=== PATIENT | male | born 1980 | race Two or more races ===

== ENCOUNTER 2018-10-24 20:03 | Emergency (ER) | payer MEDICAID ==
[~2018-10-24] VITALS: Ht 180.3 cm; Wt 85.7 kg
[2018-10-24 20:27] VITALS: BP 109/79
== END 2018-10-24 23:40 ==
LOC: ER 20:06
DX: S05.11XA Contusion of eyeball and orbital tissues, right eye, initial encounter (principal); R07.81 Pleurodynia; J45.909 Unspecified asthma, uncomplicated; F12.10 Cannabis abuse, uncomplicated; F15.10 Other stimulant abuse, uncomplicated; Z88.1 Allergy status to other antibiotic agents; X58.XXXA Exposure to other specified factors, initial encounter; Y93.89 Activity, other specified; Y92.89 Other specified places as the place of occurrence of the external cause; Y99.8 Other external cause status
CPT/HCPCS: 70450; 70486; 72125; 73060; 73562

== ENCOUNTER 2019-11-26 14:03 | Emergency (ER) | payer MEDICAID ==
[~2019-11-26] VITALS: Ht 185.4 cm; Wt 79.4 kg
[2019-11-26 14:52] VITALS: BP 116/76
== END 2019-11-26 17:23 | disposition home or self-care (01) ==
LOC: ER 14:03
DX: N45.1 Epididymitis (principal); Z88.1 Allergy status to other antibiotic agents
CPT/HCPCS: 76870

== ENCOUNTER 2019-12-12 18:26 | Emergency (ER) | payer MEDICAID ==
[~2019-12-12] VITALS: Ht 180.3 cm; Wt 79.8 kg
[2019-12-12 18:39] VITALS: BP 128/89
== END 2019-12-13 00:36 | disposition left against medical advice (07) ==
LOC: ER 18:30
DX: N45.1 Epididymitis (principal)